=== PATIENT | male | born 1955 | race Caucasian/White ===

== ENCOUNTER 2019-11-07 07:27 | Emergency (ER) | payer BC, OTHER ==
[2019-11-07 07:53] LABS: Protime INR 1.02
[2019-11-07] MEDS ORDERED: ONDANSETRON 4 MG/2 ML VIAL ONE (07:55)
[2019-11-07] MEDS ORDERED: LIDOCAINE VISCOUS 2% SOLN 15 ML UDC ONE (07:55)
[2019-11-07] MEDS ORDERED: NA CHLORIDE 0.9% 1,000 ML ONE (07:55)
[2019-11-07] MEDS ORDERED: MAGNE/ALUM HYDROXD 30 ML UCUP ONE (07:55)
[2019-11-07] MEDS ORDERED: NITROGLYCERIN 0.4 MG/TAB SL ONE (07:55)
[2019-11-07 07:56] LABS: Absolute Lymphocytes (CBC) 3.3 K/uL (0.7-4.9); Basophils % 1.4 % (0-1.3); Lymphocytes % 39.9 % (15.3-44.8); MPV 7.9 fL (7.6-11.3); RBC Red Blood Cell Count 5.18 M/uL (4.33-5.43)
[2019-11-07] MEDS ORDERED: ASPIRIN 81 MG CHEWABLE TABLET ONE (07:56)
[2019-11-07 08:10] LABS: ALT/SGPT 25 U/L (12-78); AST/SGOT 19 U/L (15-37); Albumin 3.6 g/dL (3.4-5.0); Alkaline Phosphatase 147 U/L (45-117); BUN Blood Urea Nitrogen 18 mg/dL (7-18); Bicarbonate 26 mmol/L (21-32); Bilirubin Direct 0.1 mg/dL (0-0.2); Bilirubin Total 0.5 mg/dL (0.2-1.0); Glucose Level 87 mg/dL (74-106); Magnesium 2.3 mg/dL (1.8-2.4); NT PRO-BNP 39 pg/mL (<125); Potassium 3.8 mmol/L (3.5-5.1); Protein, Total 7.9 g/dL (6.4-8.2); Sodium Level 141 mmol/L (136-145); Troponin (Emerg Dept Use Only) < 0.02 ng/mL (0.0-0.045)
--- NOTE | 2019-11-07 09:01 | RAD REPORT ---
EXAM DESCRIPTION: RAD - Chest Single View - 11/07/2019 8:00 am CLINICAL HISTORY: CHEST PAIN COMPARISON: March 2015 TECHNIQUE: AP portable chest image was obtained 11/07/2019 8:00 am . FINDINGS: No focal lung parenchymal process. Heart size and vasculature are not significantly differ ent when adjusting for the differences in technique and inspiratory effort. Significant failure or vo lume overload are not suspected. Heart and vasculature are normal. No measurable pleural effusion and no pneumothorax. No acute bony abnormality seen. No acute aortic findings suspected. IMPRESSION: No acute cardiopulmonary process. No suspicious change from comparison.
--- NOTE | 2019-11-07 09:58 | RAD REPORT ---
EXAM DESCRIPTION: CT - Chest Angio - 11/07/2019 9:01 am CLINICAL HISTORY: chest pain radiate to back ?aortic dissection COMPARISON: None. TECHNIQUE: Dynamically enhanced 3 mm thick images of the chest and upper abdomen were obtained durin g administration of approximately 75mL Isovue 370 IV contrast. Sagittal and coronal reconstruction im ages were generated using MIP and reviewed. Exam utilizes a protocol to evaluate entire course of the aorta. Due to technical malfunction initial acquisition opacify the pulmonary arterial tree. Contras t dosage was 100 milliliters for that initial acquisition. All CT scans are performed using dose optimization technique as appropriate and may include automated exposure control or mA/KV adjustment according to patient size. FINDINGS: Aorta is normal in diameter with no dissection or other acute aortic findings. Reconstruct ion images show no significant findings. No pulmonary artery abnormality. No cardiomegaly, pericardial thickening or pericardial effusion. No mass or infiltrate in the lung parenchyma. No pleural thickening, pleural effusion or pneumothorax . No abnormal mediastinal or hilar mass or lymphadenopathy seen. No chest wall mass or abnormal axillar y lymphadenopathy. Limited upper abdomen imaging shows no focal abnormality of the celiac, superior mesenteric or renal arteries. No suspicious upper abdomen finding. IMPRESSION: Negative CT scan of the thoracic aorta. Pulmonary arteries are normal. No suspicious lung parenchymal finding. Coronary artery atherosclerotic calcifications are present. No cardiomegaly or pericardial effusion.
--- NOTE | 2019-11-07 10:06 | ER ---
Nurse's Notes [facility] Name: Js Panchal Age: 64 yrs Sex: Male : 1955 Arrival Date: 11/07/2019 Time: 07:30 Bed 2 Private MD: Diagnosis: Other chest pain Presentation: 11/06 07:31 Chief complaint: Patient states: substernal chest pain, nausea and sweating that began ss 30 minutes prior to arrival. Coronavirus screen: Client denies travel out of the [place] in the last 14 days. At this time, the client does not indicate any symptoms associated with coronavirus-19. Ebola Screen: Patient denies exposure to infectious person. Patient denies travel to an Ebola-affected area in the 21 days before illness onset. Initial Sepsis Screen: Does the patient meet any 2 criteria? No. Patient's initial sepsis screen is negative. Does the patient have a suspected source of infection? No. Patient's initial sepsis screen is negative. Risk Assessment: Do you want to hurt yourself or someone else? Patient reports no desire to harm self or others. Onset of symptoms was November 07, 2019. 07:31 Method Of Arrival: Ambulatory ss 07:31 Acuity: ABE 1 ss Historical: - Allergies: 08:06 No Known Allergies; ss - PMHx: 08:06 Hypertension; ss - PSHx: 08:06 left hand surgery; left knee scope; ss - Immunization history:: Adult Immunizations up to date. - Social history:: Patient/guardian denies using alcohol, street drugs, The patient lives with family, Smoking status: Patient denies any tobacco usage or history of. - Family history:: not pertinent. Screenin:52 Abuse screen: Denies threats or abuse. Denies injuries from another. Nutritional ss screening: No deficits noted. Tuberculosis screening: Never had TB. Fall Risk None identified. Assessment: 07:45 General: Appears in no apparent distress. uncomfortable, Behavior is calm, cooperative. hb Pain: Complains of pain in substernal Pain does not radiate. Pain currently is 7 out of 10 on a pain scale. Pain began 1 hour ago. Neuro: Level of Consciousness is awake, alert, obeys commands, Oriented to person, place, time, situation. Cardiovascular: Capillary refill < 3 seconds Patient's skin is warm and dry. Respiratory: Respiratory effort is even, unlabored, Respiratory pattern is regular, symmetrical. GI: No signs and/or symptoms were reported involving the gastrointestinal system. : No signs and/or symptoms were reported regarding the genitourinary system. EENT: No signs and/or symptoms were reported regarding the EENT system. Derm: Skin is healthy with good turgor, Skin is diaphoretic, Skin is pink. Musculoskeletal: No signs and/or symptoms reported regarding the musculoskeletal system. 08:13 Reassessment: Pt to CT now VIA stretcher. ss 09:35 Reassessment: Patient appears in no apparent distress at this time. Patient and/or hb family updated on plan of care and expected duration. Pain level reassessed. Patient is alert, oriented x 3, equal unlabored respirations, skin warm/dry/pink. Vital Signs: 07:31 BP 172 / 101; Pulse 74; Resp 20; Pulse Ox 98% on R/A; Pain 7/10; ss 07:52 BP 148 / 100; Pulse 75; Resp 17; Temp 97.9(O); Pulse Ox 99% on R/A; Weight 113.4 kg; ss Height 5 ft. 11 in. (180.34 cm); Pain 6/10; 08:03 BP 110 / 77; Pulse 72; ss 09:27 BP 142 / 91; Pulse 64; Resp 12; Pulse Ox 100% ; sv 07:52 Body Mass Index 34.87 (113.40 kg, 180.34 cm) ss ED Course: 07:30 Patient arrived in ED. mr 07:30 Jaylyn Huerta MD is Attending Physician. ma2 07:31 Arm band placed on right wrist. ss 07:35 Inserted saline lock: 20 gauge in right antecubital area, using aseptic technique. ss Blood collected. Patient maintains SpO2 saturation greater than 95% on room air. 07:35 Patient has correct armband on for positive identification. Placed in gown. Bed in low ss position. radiation monitor on. Pulse ox on. NIBP on. 07:43 Yolis Oglesby, RN is Primary Nurse. ss 08:00 XRAY Chest (1 view) In Process Unspecified. EDMS 08:05 Triage completed. ss 08:45 CT Chest Angio In Process Unspecified. EDMS 09:01 Primary Nurse role handed off by Yolis Oglesby, [place]IR[place]IE sv 09:01 Zulay Salvador, [place] is Primary Nurse. sv 09:28 Awaiting radiology results. Awaiting re-evaluation by ER provider. sv 10:04 Report given to Elayne RACHEL. sv 10:05 Elayne Alfred RN is Primary Nurse. ll1 10:13 No provider procedures requiring assistance completed. IV discontinued, intact, hb bleeding controlled, No redness/swelling at site. Administered Medications: 07:51 Drug: Nitroglycerin 0.4 mg Route: Sublingual; ss 08:13 Follow up: Response: pain reduced from 7/10 to 6/10. BP dropped significantly. Dr. jae Huerta notified. 07:51 Drug: NS 0.9% 1000 ml Route: IV; Rate: 1 bolus; Site: right antecubital; ss 07:51 Drug: Zofran (Ondansetron) 4 mg Route: IVP; Site: right antecubital; ss 08:12 Follow up: Response: No adverse reaction; Nausea is decreased ss 08:23 Not Given (Patient Refused): GI Cocktail without - (Maalox Suspension 30 ml, ss Lidocaine Liquid 2 % 15 ml) PO once 10:12 Drug: TORadol 30 mg Route: IVP; Site: right antecubital; hb 10:13 Follow up: Response: Medication administered at discharge. hb Outcome: 10:13 AMA AMA form signed hb 10:13 Condition: unchanged 10:13 Instructed on the need for admit, Demonstrated understanding of instructions. 10:13 Patient left the ED. hb Signatures: Dispatcher [employer] EDMS Zulay Salvador, VIRGINIE RACHEL Natalie Kitchen mr Yolis Oglesby RN RN Shawna Diaz RN RN Jaylyn Huerta MD MD ma2 Elayne Alfred RN RN 1
--- NOTE | 2019-11-07 10:06 | EDPHYS ---
Physician Documentation [facility] Name: Js Panchal Age: 64 yrs Sex: Male : 1955 Arrival Date: 11/07/2019 Time: 07:30 Bed 2 Private MD: ED Physician Jaylyn Huerta HPI: 11/06 08:00 This 64 yrs old Male presents to ER via Unassigned with complaints of Chest ma2 Pain. 08:00 The patient or guardian reports chest pain that is located primarily in the substernal ma2 area. Onset: gradually, 1 hour(s) ago. Associated signs and symptoms: Pertinent negatives: cough, headache, lower extremity swelling, lightheadedness, syncope, vomiting. Duration: The patient or guardian reports a single episode, that is still ongoing, radiates to back . Severity of pain: At its worst the pain was mild in the emergency department the pain is unchanged. The patient has not experienced similar symptoms in the past. Historical: - Allergies: 08:06 No Known Allergies; ss - PMHx: 08:06 Hypertension; ss - PSHx: 08:06 left hand surgery; left knee scope; ss - Immunization history:: Adult Immunizations up to date. - Social history:: Patient/guardian denies using alcohol, street drugs, The patient lives with family, Smoking status: Patient denies any tobacco usage or history of. - Family history:: not pertinent. ROS: 08:00 Constitutional: Negative for fever, chills, and weight loss. ma2 08:00 All other systems are negative. Exam: 08:00 Constitutional: This is a well developed, well nourished patient who is awake, alert, ma2 and in no acute distress. ENT: Nares patent. No nasal discharge, no septal abnormalities noted. Tympanic membranes are normal and external auditory canals are clear. Oropharynx with no redness, swelling, or masses, exudates, or evidence of obstruction, uvula midline. Mucous membranes moist. Neck: Trachea midline, no thyromegaly or masses palpated, and no cervical lymphadenopathy. Supple, full range of motion without nuchal rigidity, or vertebral point tenderness. No Meningismus. Chest/axilla: Normal chest wall appearance and motion. Nontender with no deformity. No lesions are appreciated. Cardiovascular: Regular rate and rhythm with a normal S1 and S2. No gallops, murmurs, or rubs. Normal PMI, no JVD. No pulse deficits. Respiratory: Lungs have equal breath sounds bilaterally, clear to auscultation and percussion. No rales, rhonchi or wheezes noted. No increased work of breathing, no retractions or nasal flaring. Abdomen/GI: Soft, non-tender, with normal bowel sounds. No distension or tympany. No guarding or rebound. No evidence of tenderness throughout. Skin: Warm, dry with normal turgor. Normal color with no rashes, no lesions, and no evidence of cellulitis. MS/ Extremity: Pulses equal, no cyanosis. Neurovascular intact. Full, normal range of motion. Neuro: Awake and alert, GCS 15, oriented to person, place, time, and situation. Cranial nerves II-XII grossly intact. Motor strength 5/5 in all extremities. Sensory grossly intact. Cerebellar exam normal. Normal gait. Vital Signs: 07:31 BP 172 / 101; Pulse 74; Resp 20; Pulse Ox 98% on R/A; Pain 7/10; ss 07:52 BP 148 / 100; Pulse 75; Resp 17; Temp 97.9(O); Pulse Ox 99% on R/A; Weight 113.4 kg; ss Height 5 ft. 11 in. (180.34 cm); Pain 6/10; 08:03 BP 110 / 77; Pulse 72; ss 09:27 BP 142 / 91; Pulse 64; Resp 12; Pulse Ox 100% ; sv 07:52 Body Mass Index 34.87 (113.40 kg, 180.34 cm) MDM: 07:30 Patient medically screened. ma2 08:00 Differential diagnosis: abnormal EKG, anxiety, coronary artery disease gastroesophageal ma2 reflux disease (GERD), pericarditis, pneumonia, thoracic aortic disection. HEART Score: History: Highly Suspicious (2), ECG: Normal (0), Age: > or = 65 years (2), Risk Factors: 1 or 2 risk factors (1), [Hypertension] [+ Family HX] Troponin: < or = 1 x Normal Limit (0), Total Score = 5. 10:03 Data reviewed: vital signs, nurses notes. Response to treatment: the patient's symptoms ma2 have markedly improved after treatment. ED course: patient needs to be admitted for chest pain acs rule out heart score of 5. he want to go [facility] as he thinks it is muscle pain, i explained that this looks like acs to me and I offered at least another troponin, he want to be leava [facility] understands risk of leaving [place] includes [place] and . 11/06 07:31 Order name: Basic Metabolic Panel; Complete Time: 09:39 ma2 11/06 07:31 Order name: CBC with Diff; Complete Time: 09:39 ma2 11/06 07:31 Order name: LFT's; Complete Time: 09:39 ma2 11/06 07:31 Order name: Magnesium; Complete Time: 09:39 ma2 11/06 07:31 Order name: NT PRO-BNP; Complete Time: 09:39 ma2 11/06 07:31 Order name: PT-INR; Complete Time: 09:39 ma2 11/06 07:31 Order name: Troponin (emerg Dept Use Only); Complete Time: 09:39 ma2 11/06 07:31 Order name: XRAY Chest (1 view); Complete Time: 09:39 ma2 11/06 07:41 Order name: CT Chest Angio ma2 11/06 07:31 Order name: EKG; Complete Time: 07:32 ma2 11/06 07:31 Order name: Cardiac monitoring; Complete Time: 07:52 ma2 11/06 07:31 Order name: EKG - Nurse/Tech; Complete Time: 07:52 ma2 11/06 07:31 Order name: IV Saline Lock; Complete Time: 07:52 ma2 11/06 07:31 Order name: Labs collected and sent; Complete Time: 07:52 ma2 11/06 07:31 Order name: O2 Per Protocol; Complete Time: 07:52 ma2 11/06 07:31 Order name: O2 Sat Monitoring; Complete Time: 07:52 ma2 Administered Medications: 07:51 Drug: Nitroglycerin 0.4 mg Route: Sublingual; ss 08:13 Follow up: Response: pain reduced from 7/10 to 6/10. BP dropped significantly. Dr. jae Huerta notified. 07:51 Drug: NS 0.9% 1000 ml Route: IV; Rate: 1 bolus; Site: right antecubital; ss 07:51 Drug: Zofran (Ondansetron) 4 mg Route: IVP; Site: right antecubital; ss 08:12 Follow up: Response: No adverse reaction; Nausea is decreased ss 08:23 Not Given (Patient Refused): GI Cocktail without - (Maalox Suspension 30 ml, ss Lidocaine Liquid 2 % 15 ml) PO once 10:12 Drug: TORadol 30 mg Route: IVP; Site: right antecubital; hb 10:13 Follow up: Response: Medication administered at discharge. hb Disposition: 11/07/19 10:05 Patient has left against medical advice. Impression: Other chest pain. - Patients states they are going to Home. - Condition is Critical. - Discharge Instructions: Pain Without a Known Cause. Follow up: Private Physician; When: Tomorrow; Reason: Continuance of care. - Problem is new. - Symptoms are unchanged. Signatures: Dispatcher [employer] EDMS Yolis Oglesby RN RN Shawna Diaz RN RN Jaylyn Huerta MD MD ma2 Corrections: (The following items were deleted from the chart) 10:13 10:05 11/07/2019 10:05 Patients has left against medical advice. Impression: Other hb chest pain. Patient states they are going to Home. Condition is Critical. Follow up: Private Physician; When: Tomorrow; Reason: Continuance of care. Problem is new. Symptoms are unchanged. ma2
[2019-11-07] MEDS ORDERED: DIAZEPAM 10 MG/2 ML INJ SYRINGE ONE (10:08)
[2019-11-07] MEDS ORDERED: KETOROLAC 30 MG/ML INJ ONE (10:08)
[2019-11-10 14:35] VITALS: TEMP 97.9
[2019-11-10 14:37] VITALS: BP 142/91; O2SAT 100
== END 2019-11-07 10:13 | disposition left against medical advice (07) ==
LOC: ER 07:27
DX: R07.89 Other chest pain (principal); I10 Essential (primary) hypertension
CPT/HCPCS: 93005; 85025; 80048; 36415; 83735; 85610; 80076; 84484; 83880; 71275; 71045; 96375; 96374; 99291; 99292; Q9967; J7030; J2405; J3360